=== PATIENT | female | born 1960 | race Two or more races ===

== ENCOUNTER 2018-10-04 03:09 | Emergency (ER) | payer OTHER ==
[~2018-10-04] VITALS: Ht 149.9 cm; Wt 63.5 kg
[2018-10-04 03:10] VITALS: BP 148/81
[2018-10-04 03:54] LABS: Basophils # (auto) 0.1 uL; Basophils % (auto) 0.7 % (0.0-2.0); Eosinophils # (auto) 0.1 uL; Eosinophils % (auto) 1.7 % (0.0-7.0); Hematocrit 44.5 % (36.0-46.0); Lymphocytes # (auto) 3.2 uL; Lymphocytes % (auto) 40.8 % (10.0-50.0); Mean Corpuscular Hemoglobin 31.9 pg (28.0-32.0); Mean Corpuscular Hgb Conc. 33.7 g/dL (32.0-36.0); Mean Corpuscular Volume 94.7 fL (80.0-100.0); Monocytes # (auto) 0.5 uL; Monocytes % (auto) 6.9 % (0.0-12.0); Neutrophils % (auto) 49.9 % (37.0-80.0); Nucleated Red Blood Cells % 0.1 %; Platelet Count (auto) 248 10^3/uL (140-450); Red Cell Distribution Width 13.7 % (11.8-14.3); White Blood Cell 7.9 10^3/uL (4.4-10.8)
[2018-10-04 04:13] LABS: Albumin 4.3 g/dL (3.4-5.0); BUN/Creatinine Ratio 18.2; Calcium 9.2 mg/dL (8.5-10.1)
[2018-10-04 04:16] LABS: Bilirubin, Total 0.5 mg/dL (0.2-1.0); Total Protein 7.9 g/dL (6.4-8.2)
[2018-10-04 04:35] LABS: Potassium 3.6 mmol/L (3.5-5.1)
== END 2018-10-04 04:36 | disposition left against medical advice (07) ==
LOC: EDBD 03:09 → ER 03:14
DX: R10.13 Epigastric pain (principal); R11.10 Vomiting, unspecified; Z53.21 Procedure and treatment not carried out due to patient leaving prior to being seen by health care provider
CPT/HCPCS: 36415; 80053; 82150; 83690; 84702; 85025; 87040